=== PATIENT | female | born 1990 | race Caucasian/White ===

== ENCOUNTER 2020-03-21 20:39 | Emergency (ER) | payer SELFPAY ==
[~2020-03-21] VITALS: Ht 160 cm; Wt 77.2 kg
[2020-03-21 21:26] LABS: BILIRUBIN,URINE NEGATIVE (NEG); CLARITY,URINE CLEAR; COLOR,URINE YELLOW; NITRITE,URINE NEGATIVE (NEG); PH,URINE 6.5 (<5.0-8.0); PROTEIN,URINE NEGATIVE (NEG-TRACE); UROBILINOGEN,URINE 0.2 mg/dL (0.2 mg/dL)
[2020-03-21 21:28] LABS: BASO % 0 % (0-3); EOS # 0.4 x10^3/uL (0.0-0.7); EOS % 4 % (0-3); HEMATOCRIT 33.1 % (36.0-47.0); HEMOGLOBIN 11.4 g/dL (12.0-15.5); LYMPH # 2.5 x10^3/uL (1.0-4.8); LYMPH % 23 % (24-48); MEAN CORPUSCULAR HEMOGLOBIN 29 pg (25-35); MEAN CORPUSCULAR HGB CONC 35 g/dL (31-37); MEAN CORPUSCULAR VOLUME 85 fL (79-100); MONO # 0.6 x10^3/uL (0.0-1.1); MONO % 6 % (0-9); NEUT # 7.1 x10^3/uL (1.8-7.7); NEUT % 67 % (31-73); PLATELET COUNT 295 x10^3/uL (140-400); RED BLOOD COUNT 3.91 x10^6/uL (3.50-5.40); RED CELL DISTRIBUTION WIDTH 13.9 % (11.5-14.5); WHITE BLOOD COUNT 10.6 x10^3/uL (4.0-11.0)
[2020-03-21 21:32] LABS: BACTERIA,URINE FEW /HPF (0-FEW); SQUAMOUS EPITHELIAL CELL,UR FEW /LPF
[2020-03-21 21:33] LABS: RBC,URINE OCC /HPF (0-2)
--- NOTE | 2020-03-21 23:19 | RAD ---
Examination: Obstetric ultrasound limited HISTORY: History of vaginal bleeding, COMPARISON: None available. FINDINGS: Single living intrauterine identified with heart rate of 149 bpm. movement is seen. Cardiac activity seen. Biparietal diameter measures 4.1 cm corresponding to 18 weeks and 5 days. Head circumference measures 15.7 cm corresponding to 18 weeks and 0 days. Abdominal circumference measures 13.3 cm corresponding to 18 weeks and 5 days. Femur length measures 2.8 cm corresponding to 18 weeks and 5 days. Head circumference to abdominal circumference ratio 1.1. Estimated weight 254 g. Gestational age 18 weeks and 5 days. Estimated date of delivery by ultrasound 08/17/2020. position is breech. Placenta is low lying. Placental grade is grade 0. IMPRESSION: 1. Single living intrauterine . 2. Low-lying placenta. Electronically signed by: Bryn Porras MD (03/21/2020 11:16 PM) [id number]
--- NOTE | 2020-03-21 23:25 | PHYS DOC ---
Past Medical History Past Medical History: No Pertinent History Past Surgical History: Smoking Status: Never Smoker Alcohol Use: None General Adult EDM: Chief Complaint: VAGINAL BLEEDING HPI: HPI: Patient is a 29 year old female who presents to the emergency department with reports of a sudden gush of blood from her vagina. Patient is 3, para 2, and states she is approximately 18 weeks gestation. She reports that she was standing in her kitchen when all of a sudden she felt a sudden gush of blood. Patient states that she drove herself to the emergency room and while she was in route she did have a few lower abdominal cramps, she currently denies any abdominal pain or cramping. She currently denies any vaginal bleeding she states the symptoms stopped by the time she got to the emergency room. She denies any recent sexual intercourse. She denies any abdominal pain, nausea, vomiting, diarrhea, dysuria, hematuria, or increased urinary frequency. Patient's estimated due date is August 222020 her [facility] is in [place] and she reports that she has an appointment with him next week for routine visit. Review of Systems: Review of Systems: Constitutional: Denies fever or chills. [] HENT: Denies nasal congestion or sore throat. [] Respiratory: Denies cough or shortness of breath. [] Cardiovascular: Denies chest pain or edema. [] GI: Denies nausea, vomiting, bloody stools or diarrhea. [] : Denies dysuria; see HPI. [] Musculoskeletal: Denies back pain or joint pain. [] Integument: Denies rash. [] Neurologic: Denies headache, focal weakness or sensory changes. [] Complete ROS is negative unless otherwise stated in the HPI. [] Heart Score: Risk Factors: Risk Factors: DM, Current or recent (<one month) smoker, HTN, HLP, family history of CAD, obesity. Risk Scores: Score 0 - 3: 2.5% MACE over next 6 weeks - Discharge Home Score 4 - 6: 20.3% MACE over next 6 weeks - Admit for Clinical Observation Score 7 - 10: 72.7% MACE over next 6 weeks - Early Invasive Strategies Allergies: Allergies: Allergies Coded Allergies Type Severity Reaction Last Updated Verified No Known Drug Allergies 03/21/20 No Physical Exam: PE: Constitutional: Well developed, well nourished, no acute distress, non-toxic appearance. HENT: Normocephalic, atraumatic, bilateral external ears normal, nose normal. Eyes: PERRLA, EOMI, conjunctiva normal, no discharge. Neck: Normal range of motion, no stridor. Cardiovascular: Heart rate regular rhythm Lungs & Thorax: Respirations even and unlabored, no retractions, no respiratory distress Pelvic Exam: Photograph Inspector present Abdomen: Nontender, soft, palpable fundus approximately 2 finger widths below the umbilicus External Genitalia: Normal Skin, no blood present at the vaginal opening or the urethral meatus Speculum: Declined by patient Bimanual: Declined by patient Skin: Warm, dry, no erythema, no rash. Back: No tenderness Extremities: No cyanosis, ROM intact, no edema. Neurologic: Alert and oriented X 3, no focal deficits noted. Psychologic: Affect normal, judgement normal, mood normal. Current Patient Data: Labs: Laboratory Tests Test 03/21/20 20:51 03/21/20 20:57 Urine Collection Type Unknown Urine Color Yellow Urine Clarity Clear Urine pH 6.5 (<5.0-8.0) Urine Specific [place] 1.010 (1.000-1.030) Urine Protein Negative mg/dL (NEG-TRACE) Urine Glucose (UA) Negative mg/dL (NEG) Urine Ketones (Stick) Negative mg/dL (NEG) Urine Blood Moderate (NEG) Urine Nitrite Negative (NEG) Urine Bilirubin Negative (NEG) Urine Urobilinogen Dipstick 0.2 mg/dL (0.2 mg/dL) Urine Leukocyte Esterase Negative (NEG) Urine RBC Occ /HPF (0-2) Urine WBC 1-4 /HPF (0-4) Urine Squamous Epithelial Cells Few /LPF Urine Bacteria Few /HPF (0-FEW) Urine Mucus Mod /LPF White Blood Count 10.6 x10^3/uL (4.0-11.0) Red Blood Count 3.91 x10^6/uL (3.50-5.40) Hemoglobin 11.4 g/dL (12.0-15.5) L Hematocrit 33.1 % (36.0-47.0) L Mean Corpuscular Volume 85 fL (79-100) Mean Corpuscular Hemoglobin 29 pg (25-35) Mean Corpuscular Hemoglobin Concent 35 g/dL (31-37) Red Cell Distribution Width 13.9 % (11.5-14.5) Platelet Count 295 x10^3/uL (140-400) Neutrophils (%) (Auto) 67 % (31-73) Lymphocytes (%) (Auto) 23 % (24-48) L Monocytes (%) (Auto) 6 % (0-9) Eosinophils (%) (Auto) 4 % (0-3) H Basophils (%) (Auto) 0 % (0-3) Neutrophils # (Auto) 7.1 x10^3/uL (1.8-7.7) Lymphocytes # (Auto) 2.5 x10^3/uL (1.0-4.8) Monocytes # (Auto) 0.6 x10^3/uL (0.0-1.1) Eosinophils # (Auto) 0.4 x10^3/uL (0.0-0.7) Basophils # (Auto) 0.0 x10^3/uL (0.0-0.2) Maternal Serum HCG Beta Subunit 37424 mIU/mL (0-5) H Laboratory Tests 03/21/20 20:57 Vital Signs: Vital Signs Date Time Temp Pulse Resp B/P (MAP) Pulse Ox O2 Delivery O2 Flow Rate FiO2 03/21/20 22:22 88 113/56 (75) 96 Room Air 03/21/20 21:52 18 03/21/20 21:04 96.8 96.8 EKG: EKG: [] Radiology/Procedures: Radiology/Procedures: PROCEDURE: OB LIMITED Examination: Obstetric ultrasound limited HISTORY: History of vaginal bleeding, COMPARISON: None available. FINDINGS: Single living intrauterine identified with heart rate of 149 bpm. movement is seen. Cardiac activity seen. Biparietal diameter measures 4.1 cm corresponding to 18 weeks and 5 days. Head circumference measures 15.7 cm corresponding to 18 weeks and 0 days. Abdominal circumference measures 13.3 cm corresponding to 18 weeks and 5 days. Femur length measures 2.8 cm corresponding to 18 weeks and 5 days. Head circumference to abdominal circumference ratio 1.1. Estimated weight 254 g. Gestational age 18 weeks and 5 days. Estimated date of delivery by ultrasound 08/17/2020. position is breech. Placenta is low lying. Placental grade is grade 0. IMPRESSION: 1. Single living intrauterine . 2. Low-lying placenta. Electronically signed by: Bryn Porras MD (03/21/2020 11:16 PM) [id number][] Course & Med Decision Making: Course & Med Decision Making Pertinent Labs and Imaging studies reviewed. (See chart for details) [] Dragon Disclaimer: Dragon Disclaimer: This electronic medical record was generated, in whole or in part, using a voice recognition dictation system. Departure Departure Impression: Primary Impression: Vaginal bleeding before 22 weeks gestation Additional Impression: Low-lying placenta Disposition: 01 HOME, SELF-CARE Condition: STABLE Referrals: UNKNOWN PCP NAME (PCP) Patient Instructions: Pelvic Rest, Vaginal Bleeding During , Second Trimester Additional Instructions: According to your ultrasound your placenta is low-lying. The baby's heart rate was 143 bpm and the baby currently measured 18 weeks and 5 days. Follow the pelvic rest instructions provided to you. Bed rest until you follow-up with your [employer], call their office in the morning and advise them of your visit in the emergency department tonight. Return to the emergency room if your symptoms worsen. Justicifation of Admission Dx: Justifications for Admission: Justification of Admission Dx: N/A BECKI BARAKAT APRN Mar 21, 2020 23:25
[2020-03-21 23:29] VITALS: BP 119/66
== END 2020-03-21 23:36 | disposition home or self-care (01) ==
LOC: ER 20:39
DX: O44.42 Low lying placenta NOS or without hemorrhage, second trimester (principal); R00.2 Palpitations; Z98.890 Other specified postprocedural states; Z3A.18 18 weeks gestation of pregnancy
CPT/HCPCS: 36415; 76815; 81001; 84702; 85025; 86900; 86901; 99285